=== PATIENT | female | born 2005 | race Asian ===

== ENCOUNTER 2023-03-06 16:59 | Emergency (ER) | payer BC, SELFPAY ==
--- NOTE | ~2023-03-06 | XR_ITS ---
EXAMINATION: XR TOES, LEFT CLINICAL INFORMATION: Great toe status post reduction COMPARISON: Radiographs from earlier the same day TECHNIQUE: 3 views of the left foot first digit were obtained. FINDINGS: Alignment across the interphalangeal joint of the first digit is now anatomic. Small fracture fragments noted at the interphalangeal joint space, likely off the base of the distal phalanx. Remaining osseous structures appear intact. XR/XR toe LT min 2V IMPRESSION: Alignment across the interphalangeal joint of the first digit is now anatomic. Small fracture fragments at the interphalangeal joint, likely off the base of the distal phalanx.
--- NOTE | ~2023-03-06 | XR_ITS ---
EXAMINATION: XR TOES, LEFT CLINICAL INFORMATION: Pain COMPARISON: None available. TECHNIQUE: 3 views of the left toes were obtained. FINDINGS: Exam is limited due to patient positioning. There is a minimally displaced fracture of the distal phalanx of the great toe intra-articular with the IP joint. There is question of abnormal alignment/dislocation or subluxation of the IP joint as well. The distal phalanx appears dorsal and lateral respect to the proximal phalanx and there is overlapping. There is adjacent soft tissue swelling. XR/XR toe LT min 2V IMPRESSION: Fracture of the distal phalanx of the great toe intra-articular with the IP joint and question abnormal alignment of the IP joint.
--- NOTE | 2023-03-06 18:45 | ED.LOWEXIN ---
HPI - Extremity Injury (Lower) General Chief Complaint: Extremity Injury, Lower Stated Complaint: left toe injury Time Seen by Provider: 03/06/23 22:17 Source: patient, RN notes reviewed and old records reviewed Mode of arrival: ambulatory History of Present Illness HPI Narrative: 17-year-old female with no significant past medical history presenting to the ED complaining of left great toe pain, swelling, and deformity s/p slip and fall while dancing [employer] in her room, states fell/slipped backwards, suspicious foot got caught on something, denies head trauma or LOC. Admits to taking 600 mg of ibuprofen [employer]. Denies injury to the area, numbness, tingling, weakness. Ambulatory with discomfort MD complaint: foot injury Related Data Allergies Allergy/AdvReac Type Severity Reaction Status Date / Time No Known Allergies Allergy Verified 03/06/23 18:44 Review of Systems Review of Systems: Constitutional: No Fever, No Chills ENT/Mouth: No Ear Pain, No Nasal Congestion, No sore throat, No Rhinorrhea, No Swallowing Difficulty Cardiovascular: No Chest Pain, No SOB Respiratory: No Cough Gastrointestinal: No Nausea, No Vomiting, No Diarrhea, No Constipation, No Abdominal pain Musculoskeletal: +oint pain, No Myalgias, + Joint Swelling Skin: No Skin Lesions, No rash Neuro: No Weakness, No Numbness, No Paresthesias Yes all other systems are reviewed and are negative Constitutional: Constitutional: Reports as per [facility] Past Medical History Attestation statement: The following information was validated with the patient. Source: old records reviewed Social History Social History Smoked in Last 30 Days: No Use of substances other than those prescribed or required for medical reasons: No Advance Directives: No Advance Directives Information Provided: No Patient : No Physical Exam Vital Signs: Vital Signs: Last Vital Signs Temp 98.9 F 03/06/23 23:30 Pulse 93 03/06/23 23:30 Resp 16 03/06/23 23:30 BP 131/79 03/06/23 23:30 Pulse Ox 96 03/06/23 23:30 O2 Del Method Room Air 03/06/23 23:30 BMI result Body Mass Index 19.8 Const: General: cooperative, healthy appearing and no acute distress Orientation/consciousness: patient oriented x3 Limitations: no limitations HEENT: Head: Yes normal to inspection and Yes atraumatic Ears: hearing grossly normal bilaterally General nose exam: Normal external nose present Face and sinus: Yes normal facial exam Eyes: General: appearance normal, both eyes and all related structures EOM: EOMs intact bilaterally Neck: Neck: Yes normal visual inspection and Yes no meningeal signs Resp: Effort & Inspection: normal respiratory effort and no respiratory distress Cardio: Rate: regular rate Peripheral pulses: dorsalis pedis present Skin: Rashes: no rashes Wounds: no wounds Neuro: General: patient oriented x3, tone normal and no meningeal signs Cranial nerves: Yes CN's II-XII intact bilaterally Gait exam (Neuro): Normal gait present Extrem: Other: Left great toe with noted swelling/ecchymosis and deformity. Tender to palpation. Neurovascularly intact. Sensation intact to light touch. Course Course Course Narrative: This is an RME: Additional HPI, ROS, PE not included below will be deferred to primary provider. This is a [id number]-female presenting to the ER with complaints of left great toe pain since today. Pt states that she was dancing in her room and twisted and landed onto her left great toe. Toe looks dislocated. Plan: xray left great toe XR toe LT min 2V IMPRESSION: Fracture of the distal phalanx of the great toe intra-articular with the IP joint and question abnormal alignment of the IP joint. > reduction performed at bedside XR toe LT min 2V IMPRESSION: Alignment across the interphalangeal joint of the first digit is now anatomic. Small fracture fragments at the interphalangeal joint, likely off the base of the distal phalanx. >> sean tape applied. Patient is supplied with hard-soled shoe. Is to follow up with Orthopedics Medical Decision Making Medical Decision Making MDM Narrative: 17-year-old female with no significant past medical history presenting to the ED complaining of left great toe pain, swelling, and deformity s/p slip and fall while dancing [employer] in her room, states fell/slipped backwards, suspicious foot got caught on something, denies head trauma or LOC. On exam tachycardic likely from pain, NAD, nontoxic appearing, physical exam as noted above. Concern for toe/foot fracture versus dislocation. No evidence of septic joint/arthritis. Plan: X-rays Please refer to course for remaining clinical decision making, interpretation of labs/imaging results, and discussions with consultants and/or family members. Differential Diagnosis Differential Diagnoses: The differential diagnosis associated with the presentation includes As above Independent Interpretation I performed an independent interpretation of an: Plain X-Ray (Toe appears dislocated/fracture) Radiology Impression Discussion of test interpretation with radiology: I have reviewed the radiologist's reading. External Record Review External record reviewed: Inpatient record, Office record, Outpatient record, Prior outpatient labs, Prior outpatient radiology, Primary care record and Outside ED record Tests considered The following testing was considered but not selected: As above Prescription Management I considered prescription management with: Pain Medication Procedures Orthopedic Joint Reduction Joint #1: Side: left Joint Reduction Location: toe Analgesia: none Technique used: traction/counter-traction Post-reduction neuro exam: intact Post-reduction vascular: intact Post Reduction X-Ray Obtained: Yes Post Reduction X-Ray Results: reduced Splint Applied: Yes (Sean-tape) Patient Tolerated Procedure: well Discharge Plan Discharge Clinical Impression: Fracture of great toe, Closed dislocation of great toe Patient Disposition: Home, Self-Care Instructions: Toe Fracture (ED) Additional Instructions: You dislocated and broke a your left great toe Your toe is back in place however still broken, please body tape as taught in the emergency department Use hard-soled shoe Please follow-up with orthopedics. Ice and elevate. Take Tylenol Motrin for pain/swelling If area begins look infected, is red there is drainage or pain is unbearable return to the ED Referrals: [facility] [Provider Group] - 1 week Interventions: ED Discharge Assessment Last Done: 03/06/23 23:56 Discharge Date/Time: 03/06/23 23:57
[2023-03-06 18:46] VITALS: BP 123/81; PULSE 101; RESP 16; TEMP 36.4; O2SAT 99; BMI 19.8
--- NOTE | 2023-03-06 20:24 | PC.NURSE ---
a&ox3, vss and up to date. pt awaiting on official xray results and to be seen by provider. pt states pain is a 2/10 at this time. resting comfortably in no apparent distress. 2+ peripheral pulses palpable. cms intact in all toes aside from left big toe. pt is unable to move at this time. denies any other sx. respirations even and unlabored. call leyva placed within reach.
--- NOTE | 2023-03-06 23:22 | PC.NURSE ---
toe dislocation reduced by myke concepcion at bedside. awaiting second xray to confirm. +pulses. wpd.
[2023-03-06 23:30] VITALS: BP 131/79; PULSE 93; RESP 16; TEMP 37.2; O2SAT 96
--- NOTE | 2023-03-06 23:55 | PC.NURSE ---
efra taped L great toe to middle toe. +csm. cap refill <2 seconds. surgical shoe given per myke concepcion verbal order for comfort. pt ambulatory with steady gait denies pain.
== END 2023-03-06 23:57 | disposition home or self-care (01) ==
PROVIDERS: Emergency Provider Emergency Medicine
DX: S92.402A Displaced unspecified fracture of left great toe, initial encounter for closed fracture (principal); M79.672 Pain in left foot; Y93.41 Activity, dancing; Y93.9 Activity, unspecified; Y92.9 Unspecified place or not applicable; Y99.9 Unspecified external cause status
CPT/HCPCS: 28495; 73660; 99283; 99284